=== PATIENT | female | born 1955 ===

== ENCOUNTER 2020-11-06 10:07 | Outpatient (CLI) | payer OTHER | END 2020-11-06 10:12 | disposition home or self-care (01) | LOC: TOM 10:07 | PROVIDERS: ATTEND Internal Medicine Gastroenterology | DX: K57.90 Diverticulosis of intestine, part unspecified, without perforation or abscess without bleeding (principal); Z12.11 Encounter for screening for malignant neoplasm of colon ==

== ENCOUNTER 2022-10-22 15:05 | Emergency (ER) | payer OTHER ==
[~2022-10-22] VITALS: Ht 165.1 cm; Wt 97.5 kg
== END 2022-10-22 19:10 | disposition left against medical advice (07) ==
LOC: ER 15:05
DX: Z53.21 Procedure and treatment not carried out due to patient leaving prior to being seen by health care provider (principal)